=== PATIENT | female | born 2000 | race Caucasian/White ===

== ENCOUNTER → 2018-06-16 | Day surgery (SDC) | payer MEDICAID ==
[~2018-06-16] MED LIST: ALBUTEROL 0.083% (NEB) 2.5 MG/3 ML AMP HHN; CEFAZOLIN 1 GM INJ; CEFAZOLIN 2 GM/50 ML (PMX) 50 ML IVPB; DEXAMETHASONE 4 MG/ML 1 ML INJ; DIPHENHYDRAMINE 50 MG INJ IV; EPHEDrine SULFATE 50 MG/5 ML SYG; ESMOLOL 10 ML; FAMOTIDINE 20 MG INJ; FENTAnyl 50 MCG/ML VIAL; FENTAnyl 50 MCG/ML VIAL IV; GLYCOPYRROLATE 0.4 MG INJ; HYDROCODONE/APAP (7.5/325) TAB PO; LABETALOL HCL 20MG INJ IV; LIDOCAINE 2% (SDV) 5 ML INJ; MEPERIDINE 25 MG INJ IV; METOPROLOL 5 MG INJ; MIDAZOLAM 1 MG/ML 2 ML INJ; NEOSTIGMINE 3 MG/3 ML SYRINGE; ONDANSETRON 4 MG INJ; ONDANSETRON 4 MG INJ IV; OXYCODONE/ACETAMINOPHEN (5/325) TAB PO; PHENYLephrine (100 MCG/ML) 5ML SYG; PROPOFOL 40 ML; ROCURONIUM 50 MG INJ; SOD CHLORIDE 0.9% 1,000 ML IV; morphine (1 MG/ML) 10ML SYRINGE IV
[2018-06-16] MEDS: HYDROmorphONE 1 MG/5 ML IV SYRINGE IV ×3 (14:35→14:55)
[2018-06-16] MEDS: FENTAnyl 50 MCG/ML VIAL IV ×2 (14:36→14:45)
[2018-06-16] MEDS: METOPROLOL 5 MG INJ IV (14:41)
== END | disposition home or self-care (01) ==
LOC: SDS 08:52
DX: D24.2 Benign neoplasm of left breast (principal); G80.0 Spastic quadriplegic cerebral palsy
CPT/HCPCS: 19120; 84703; 88307